=== PATIENT | female | born 1955 | race Caucasian/White ===

== ENCOUNTER 2020-01-30 | Emergency (ER) | payer MEDICARE ==
[2020-01-30] MEDS ORDERED: CETIRIZINE10 MG PO (16:24)
[2020-01-30] MEDS ORDERED: OMEPRAZOLE DR40 MG PO (16:25)
[2020-01-30] MEDS ORDERED: PAROXETINE20 MG PO (16:26)
[2020-01-30] MEDS ORDERED: BUPROPION HCL150 MG PO (16:26)
[2020-01-30] MEDS ORDERED: NORVASC5 M1 PO (16:28)
[2020-01-30] MEDS ORDERED: ATORVASTATIN CA40 MG PO (16:29)
[2020-01-30] MEDS ORDERED: LEVOTHYROXIN50 MCG PO (16:29)
[2020-01-30] MEDS ORDERED: LISINOPRIL40 MG PO (16:29)
[2020-01-30] MEDS ORDERED: DOXY-CAPS100 MG PO (17:38)
[2020-01-30] MEDS ORDERED: METRONIDAZOL500 MG PO (17:38)
== END 2020-01-30 18:15 | disposition home or self-care (01) ==
DX: S51.851A Open bite of right forearm, initial encounter (principal); I10 Essential (primary) hypertension; W54.0XXA Bitten by dog, initial encounter; Y92.009 Unspecified place in unspecified non-institutional (private) residence as the place of occurrence of the external cause; Z88.0 Allergy status to penicillin

== ENCOUNTER 2020-02-01 07:15 | Emergency (ER) | payer MEDICARE ==
[~2020-02-01 07:15] MED LIST: ATORVASTATIN CA40 MG PO; BUPROPION HCL150 MG PO; CETIRIZINE10 MG PO; DOXY-CAPS100 MG PO; LEVOTHYROXIN50 MCG PO; LISINOPRIL40 MG PO; METRONIDAZOL500 MG PO; NORVASC5 M1 PO; OMEPRAZOLE DR40 MG PO; PAROXETINE20 MG PO
[2020-02-01 07:48] VITALS: BP 153/87
== END 2020-02-01 07:59 | disposition home or self-care (01) ==
LOC: ED 07:15
DX: S51.851D Open bite of right forearm, subsequent encounter (principal); I10 Essential (primary) hypertension; W54.0XXD Bitten by dog, subsequent encounter

== ENCOUNTER 2023-03-29 17:41 | Emergency (ER) | payer MEDICARE ==
[~2023-03-29] VITALS: Ht 170.2 cm; Wt 97.5 kg
[2023-03-29 18:15] VITALS: BP 139/63
[2023-03-29] MEDS ORDERED: KEFLEX500 MG PO (18:43)
[2023-03-29 18:50] VITALS: BP 111/51
[2023-03-29 18:52] VITALS: BP 111/51
== END 2023-03-29 19:00 | disposition home or self-care (01) ==
LOC: ED 17:41
PROC: 0HQEXZZ Repair Left Lower Arm Skin, External Approach (ICD-10-PCS; principal; 2023-03-29)
DX: S61.512A Laceration without foreign body of left wrist, initial encounter (principal); I10 Essential (primary) hypertension; E78.00 Pure hypercholesterolemia, unspecified; F32.A Depression, unspecified; W29.3XXA Contact with powered garden and outdoor hand tools and machinery, initial encounter